=== PATIENT | female | born 1995 | race Hispanic/Latino ===

== ENCOUNTER 2019-03-28 01:16 | Emergency (ER) | payer MEDICAID, OTHER ==
[~2019-03-28 01:16] MED LIST: PREN1TAB80 PO
[2019-03-28] MEDS ORDERED: KETOROLAC TROMETHAMINE 60 MG/2 ML VIAL ONE (05:02)
[2019-03-28] MEDS ORDERED: CYCLOBENZAPRINE HCL 10 MG TABLET ONE (05:02)
== END 2019-03-28 05:17 | disposition home or self-care (01) ==
LOC: EDH 01:16
DX: S16.1XXA Strain of muscle, fascia and tendon at neck level, initial encounter (principal); M62.838 Other muscle spasm; V49.49XA Driver injured in collision with other motor vehicles in traffic accident, initial encounter; Y93.89 Activity, other specified; Y92.410 Unspecified street and highway as the place of occurrence of the external cause; Y99.8 Other external cause status
CPT/HCPCS: 96372; 99283; J1885